=== PATIENT | male | born 1960 | race Caucasian/White ===

== ENCOUNTER → 2016-11-13 | Outpatient (CLI) | payer BC ==
[2016-11-13 16:34] LABS: BASO # 0.1 K/mm3 (0.0-0.2); BASO % 1.2 % (0.0-1.0); EOS # 0.2 K/mm3 (0.0-0.50); EOS % 2.4 % (0.0-3.0); LARGE UNSTAINED CELL # 0.2 K/mm3 (0.0-0.4); LARGE UNSTAINED CELL % 1.6 % (0.0-4.0); LYMPH # 2.8 K/mm3 (1.5-4.5); LYMPH % 25.8 % (24.0-44.0); MEAN CORPUSCULAR HEMOGLOBIN 30.6 pg (27.0-33.0); MEAN CORPUSCULAR HGB CONC 33.1 g/dl (32.0-36.5); MEAN CORPUSCULAR VOLUME 92.4 fl (80.0-96.0); MONO # 0.5 K/mm3 (0.0-0.8); MONO % 4.9 % (0.0-5.0); NEUTROPHILS # 6.5 K/mm3 (1.8-7.7); PLATELET COUNT, AUTOMATED 325 k/mm3 (150-450); RED CELL DISTRIBUTION WIDTH 13.5 % (11.5-14.5); WHITE BLOOD COUNT 10.1 K/mm3 (4.0-10.0)
[2016-11-13 16:51] LABS: ALBUMIN 3.9 GM/DL (3.2-5.2); ALBUMIN/GLOBULIN RATIO 1.08 (1.00-1.93); ALKALINE PHOSPHATASE 78 U/L (45-117); ALT/SGPT 22 U/L (12-78); AMYLASE 53 U/L (25-115); ANION GAP 6 MEQ/L (8-16); AST/SGOT 15 U/L (15-37); BILIRUBIN,DIRECT < 0.1 MG/DL (0.0-0.2); BILIRUBIN,TOTAL 0.3 MG/DL (0.2-1.0); BLOOD UREA NITROGEN 8 MG/DL (7-18); CARBON DIOXIDE LEVEL 30 MEQ/L (21-32); CHLORIDE LEVEL 104 MEQ/L (98-107); CREATININE FOR GFR 0.87 MG/DL (0.70-1.30); GLOMERULAR FILTRATION RATE > 60.0 (>56); GLUCOSE, FASTING 74 MG/DL (70-105); POTASSIUM SERUM 4.5 MEQ/L (3.5-5.1); SODIUM LEVEL 140 MEQ/L (136-145); TOTAL PROTEIN 7.5 GM/DL (6.4-8.2)
--- NOTE | 2016-11-13 17:49 | REP ---
CT abdomen and pelvis with IV contrast and with bowel contrast: There are no comparisons. The visualized lung burk are unremarkable. The hepatic parenchyma, gallbladder, pancreas and spleen are unremarkable. The adrenals, kidneys and abdominal aorta are unremarkable except for calcified atheroma in the aorta. There is no bowel distension. Mesentery is unremarkable. Pelvis: The appendix is unremarkable. The bladder is unremarkable. There is no adenopathy or ascites. The pelvic bowel loops are unremarkable. Impression: Essentially negative CT of the abdomen and pelvis. Signed by Elroy Jordan MD 11/13/2016 05:39 P
[2016-11-16 09:18] LABS: CONTROL LINE HPYORI INT CTR LINE PRESENT
== END ==
LOC: M LAB 15:39
PROVIDERS: ATTEND Physician Assistant
DX: R10.13 Epigastric pain (principal); R10.11 Right upper quadrant pain; R63.4 Abnormal weight loss

== ENCOUNTER → 2016-12-16 | Outpatient (CLI) | payer BC ==
[~2016-12-16] VITALS: Ht 172.7 cm; Wt 69.9 kg
[~2016-12-16] MED LIST: LIDOCAINE 2% INJ 100 MG/5 ML SDV (FOR ANES.) As Ordered ONE; NS 1,000 ML IV SCH; OMEP20CA3 PO; PROPOFOL 200 MG/20 ML VIAL As Ordered ONE; fentaNYL 100 MCG/2 ML INJECTION (J3010) As Ordered ONE
--- NOTE | 2016-12-16 10:26 | ROOR ---
Patient Name: Evaristo Herrera Procedure Date: 12/16/2016 9:47 AM Date of : 1960 Age: 56 Room: [facility] Gender: Male Note Status: Finalized Procedure: Upper GI endoscopy Indications: Epigastric abdominal pain Providers: Quoc Dimas MD Referring MD: Kenneth Villafana MD Requesting Provider: Medicines: Monitored Anesthesia Care Complications: No immediate complications. Procedure: Pre-Anesthesia Assessment: - Prior to the procedure, a History and Physical was performed, and patient medications and allergies were reviewed. The patient is competent. The risks and benefits of the procedure and the sedation options and risks were discussed with the patient. All questions were answered and informed consent was obtained. Patient identification and proposed procedure were verified by the physician, the nurse and the anesthesiologist in the endoscopy suite. Mental Status Examination: alert and oriented. Airway Examination: normal oropharyngeal airway and neck mobility. Respiratory Examination: clear to auscultation. CV Examination: normal. Prophylactic Antibiotics: The patient does not require prophylactic antibiotics. Prior Anticoagulants: The patient has taken no previous anticoagulant or antiplatelet agents. ASA Grade Assessment: II - A patient with mild systemic disease. After reviewing the risks and benefits, the patient was deemed in satisfactory condition to undergo the procedure. The anesthesia plan was to use monitored anesthesia care (MAC). Immediately prior to administration of medications, the patient was re-assessed for adequacy to receive sedatives. The heart rate, respiratory rate, oxygen saturations, blood pressure, adequacy of pulmonary ventilation, and response to care were monitored throughout the procedure. The physical status of the patient was re-assessed after the procedure. The Endoscope was introduced through the mouth, and advanced to the third part of duodenum. The upper GI endoscopy was accomplished without difficulty. The patient tolerated the procedure well. Findings: The examined esophagus was normal. The Z-line was regular and was found 38 cm from the incisors. Diffuse moderate mucosal changes characterized by erosion, flattening, granularity, linear erosions and nodularity were found in the gastric antrum. Biopsies were taken with a cold forceps for Helicobacter pylori testing. Estimated blood loss was minimal. The second portion of the duodenum was normal. Impression: - Normal esophagus. - Z-line regular, 38 cm from the incisors. - Eroded, flattened, granular, linearly eroded and nodular mucosa in the antrum. Biopsied. - Normal second portion of the duodenum. - High likelihood of gastritis. Recommendation: - Discharge patient to home (ambulatory). - Continue present medications. - Await pathology results. - Telephone my office for pathology results in 2 weeks. Quoc Dimas MD Quoc Dimas MD 12/16/2016 10:25:25 AM This report has been signed electronically. Number of Addenda: 0 Note Initiated On: 12/16/2016 9:47 AM Estimated Blood Loss: Estimated blood loss was minimal.
--- NOTE | 2016-12-16 10:29 | ROOR ---
Patient Name: Evaristo Herrera Procedure Date: 12/16/2016 9:49 AM Date of : 1960 Age: 56 Room: [facility] Gender: Male Note Status: Finalized Procedure: Colonoscopy Indications: Screening for colorectal malignant neoplasm Providers: Quoc Dimas MD Referring MD: Kenneth Villafana MD Requesting Provider: Medicines: Monitored Anesthesia Care Complications: No immediate complications. Procedure: Pre-Anesthesia Assessment: - Prior to the procedure, a History and Physical was performed, and patient medications and allergies were reviewed. The patient is competent. The risks and benefits of the procedure and the sedation options and risks were discussed with the patient. All questions were answered and informed consent was obtained. Patient identification and proposed procedure were verified by the physician, the nurse and the anesthesiologist in the endoscopy suite. Mental Status Examination: alert and oriented. Airway Examination: normal oropharyngeal airway and neck mobility. Respiratory Examination: clear to auscultation. CV Examination: normal. Prophylactic Antibiotics: The patient does not require prophylactic antibiotics. Prior Anticoagulants: The patient has taken no previous anticoagulant or antiplatelet agents. ASA Grade Assessment: II - A patient with mild systemic disease. After reviewing the risks and benefits, the patient was deemed in satisfactory condition to undergo the procedure. The anesthesia plan was to use monitored anesthesia care (MAC). Immediately prior to administration of medications, the patient was re-assessed for adequacy to receive sedatives. The heart rate, respiratory rate, oxygen saturations, blood pressure, adequacy of pulmonary ventilation, and response to care were monitored throughout the procedure. The physical status of the patient was re-assessed after the procedure. The Colonoscope was introduced through the anus and advanced to the cecum, identified by appendiceal orifice and ileocecal valve. The colonoscopy was performed without difficulty. The patient tolerated the procedure well. The quality of the bowel preparation was adequate to identify polyps. Findings: The perianal exam findings include non-thrombosed external hemorrhoids. A diminutive polyp was found in the descending colon. The polyp was flat. The polyp was removed with a jumbo cold forceps. Resection and retrieval were complete. Estimated blood loss was minimal. A small polyp was found in the rectum. The polyp was sessile. The polyp was removed with a jumbo cold forceps. Resection and retrieval were complete. Estimated blood loss was minimal. Three sessile polyps were found in the rectum. The polyps were 5 to 8 mm in size. These polyps were removed with a jumbo cold forceps. Resection and retrieval were complete. Estimated blood loss was minimal. Impression: - Non-thrombosed external hemorrhoids found on perianal exam. - One diminutive polyp in the descending colon, removed with a jumbo cold forceps. Resected and retrieved. - One small polyp in the rectum, removed with a jumbo cold forceps. Resected and retrieved. - Three 5 to 8 mm polyps in the rectum, removed with a jumbo cold forceps. Resected and retrieved. Recommendation: - Repeat colonoscopy in 5 years for surveillance. - Telephone my office for pathology results in 2 weeks. Quoc Dimas MD Quoc Dimas MD 12/16/2016 10:29:34 AM This report has been signed electronically. Number of Addenda: 0 Note Initiated On: 12/16/2016 9:49 AM Estimated Blood Loss: Estimated blood loss was minimal.
[2016-12-16 10:50] VITALS: BP 117/68
== END | disposition home or self-care (01) ==
LOC: M OPP 08:23
PROVIDERS: ATTEND Surgery
DX: Z12.11 Encounter for screening for malignant neoplasm of colon (principal); D12.4 Benign neoplasm of descending colon; D12.8 Benign neoplasm of rectum; K31.89 Other diseases of stomach and duodenum; R63.4 Abnormal weight loss; K64.4 Residual hemorrhoidal skin tags; K25.9 Gastric ulcer, unspecified as acute or chronic, without hemorrhage or perforation; R10.13 Epigastric pain; R12 Heartburn; F17.210 Nicotine dependence, cigarettes, uncomplicated; Z79.899 Other long term (current) drug therapy
CPT/HCPCS: 43239; 45380; 88305; 99156; 99157; J3010

== ENCOUNTER 2021-07-30 18:11 | Observation (INO) | payer BC ==
[~2021-07-30] VITALS: Ht 172.7 cm; Wt 78.5 kg
[~2021-07-30 18:11] MED LIST changes: -LIDOCAINE 2% INJ 100 MG/5 ML SDV (FOR ANES.) As Ordered ONE; -NS 1,000 ML IV SCH; +OMEP1CAP73 PO; -OMEP20CA3 PO; -PROPOFOL 200 MG/20 ML VIAL As Ordered ONE; -fentaNYL 100 MCG/2 ML INJECTION (J3010) As Ordered ONE
--- OUTSIDE RECORDS SUMMARY | 2021-07-30 18:27 | CCD ---
Author Author [facility] Organization [facility] Address Unknown Phone Unavailable Support Name Relationship Address Phone DEMETRIO NAVAS Next Of Kin [address] [place] [address] LAURA MACHINE Next Of Kin [address] [place] [address] FERDINAND NAVAS-DEMETRIO Next Of Kin [address] [place] [address] Re-disclosure Warning The records that you are about to access may contain information from federally-assisted alcohol or drug abuse programs. If such information is present, then the following federally mandated warning applies: This information has been disclosed to you from records protected by federal confidentiality rules (42 CFR part 2). The federal rules prohibit you from making any further disclosure of this information unless further disclosure is expressly permitted by the written consent of the person to whom it pertains or as otherwise permitted by 42 CFR part 2. A general authorization for the release of medical or other information is NOT sufficient for this purpose. The Federal rules restrict any use of the information to criminally investigate or prosecute any alcohol or drug abuse patient.The records that you are about to access may contain highly sensitive health information, the redisclosure of which is protected by Article 27-F of the [facility] Public Health law. If you continue you may have access to information: Regarding HIV / AIDS; Provided by facilities licensed or operated by the [facility] Office of Mental Health; or Provided by the [facility] Office for People With Developmental Disabilities. If such information is present, then the following [facility] mandated warning applies: This information has been disclosed to you from confidential records which are protected by state law. State law prohibits you from making any further disclosure of this information without the specific written consent of the person to whom it pertains, or as otherwise permitted by law. Any unauthorized further disclosure in violation of state law may result in a fine or senior care sentence or both. A general authorization for the release of medical or other information is NOT sufficient authorization for further disc losure. Family History Family Member Name Family Member Gender Family Member Status Date o f Status Description Data Source(s) Unknown Male Problem [facility] ([facility]) Unknown Female Problem MEDENT ([facility], ) Unknown Unknown Medications No Information Insurance Providers Payer name Policy type / Coverage type Policy ID Covered republican ID Covered republican's relationship to alves Policy Alves Plan Information [facility]/[id number] SP [id number] Blue Cross Blue Shield CL Commercial [id number] Self V [id number] BLUE CROSS BLUE SHIELD CL BS [id number] 18 [id number] BLUE CROSS BLUE SHIELD -O/P [id number] 18 [id number] Blue Cross Blue Shield CL Commercial [id number] Self V [id number] [employer] BC[employer] Health Maintenance Organization (HMO) [id number] Self [id number] [facility] Commercial [id number] Self Problems, Conditions, and Diagnoses No Information Surgeries/Procedures No Information Results No Information Social History No Information
[2021-07-30 19:55] LABS: BASO # 0.1 10^3/uL (0.0-0.2); BASO % 0.5 % (0.0-1.0); EOS # 0.4 10^3/uL (0.0-0.5); EOS % 4.5 % (0.0-3.0); HEMATOCRIT 45.2 % (42.0-52.0); HEMOGLOBIN 15.1 g/dl (13.5-17.5); LYMPH # 2.7 10^3/uL (1.5-5.0); LYMPH % 27.6 % (24.0-44.0); MEAN CORPUSCULAR HEMOGLOBIN 31.6 pg (27.0-33.0); MEAN CORPUSCULAR HGB CONC 33.4 g/dl (32.0-36.5); MEAN CORPUSCULAR VOLUME 94.6 fl (80.0-96.0); MONO # 0.6 10^3/uL (0.0-0.8); PLATELET COUNT, AUTOMATED 255 10^3/uL (150-450); RED BLOOD COUNT 4.78 10^6/uL (4.30-6.10); WHITE BLOOD COUNT 9.8 10^3/uL (4.0-10.0)
--- NOTE | 2021-07-30 20:00 | REP ---
INDICATION: CHEST PAIN. COMPARISON: None. TECHNIQUE: Single portable AP view of the chest was performed. FINDINGS: There is no acute infiltrate or pulmonary edema. Lungs are clear. The heart is not significantly enlarged. The mediastinal silhouette is unremarkable. The visualized osseous structures are intact. IMPRESSION: No acute pulmonary disease. <Electronically signed by Elroy Medrano > 07/30/211956
--- OUTSIDE RECORDS SUMMARY | 2021-07-30 20:05 | CCD ---
Author Author [facility] Organization [facility] Address Unknown Phone Unavailable Support Name Relationship Address Phone DEMETRIO NAVAS Next Of Kin [address] [place] [address] LAURA MACHINE Next Of Kin [address] [facility] [place] [phone] FERDINAND NAVAS-DEMETRIO Next Of Kin [address] [place] [address] Re-disclosure Warning The records that you are [...] is protected by Article 27-F of the [facility] Public Health law. If you continue you may have access to information: Regarding HIV / AIDS; Provided by facilities licensed or operated by the [facility] Office of Mental Health; or Provided by the [facility] Office for People With Developmental Disabilities. If such information is present, then the following [facility] mandated warning applies: This information has [...] law may result in a fine or assisted sentence or both. A general authorization for the release of medical or other information is NOT sufficient authorization for further disc losure. Family History Family Member Name Family Member Gender Family Member Status Date o f Status Description Data Source(s) Unknown Male Problem [facility]ENT ([facility]) Unknown Female Problem MEDENT ([facility], ) Unknown Unknown Medications No Information Insurance Providers Payer name Policy type / Coverage type Policy ID Covered democrat ID Covered democrat's relationship to alves Policy Alves Plan Information [facility] 302/[id number] SP [id number] Blue Cross Blue Shield CL Commercial [id number] Self V [id number] BLUE CROSS BLUE SHIELD CL BS [id number] 18 [id number] BLUE CROSS BLUE SHIELD -O/P [id number] 18 [id number] Blue Cross Blue Shield CL Commercial [id number] Self V [id number] [employer] Health Maintenance Organization (HMO) [id number] Self [id number] BC[facility] Commercial [id number] Self Problems, Conditions, and Diagnoses No Information Surgeries/Procedures No Information Results No Information Social History No Information
[2021-07-30 20:35] LABS: ALBUMIN 3.6 GM/DL (3.2-5.2); ALT/SGPT 19 U/L (12-78); BILIRUBIN,DIRECT < 0.1 MG/DL (0.0-0.2); BILIRUBIN,TOTAL 0.4 MG/DL (0.2-1.0); CK-MB VALUE MASS < 1.0 NG/ML (<3.6); CPK CREATINE PHOSPHOKINASE 112 U/L (39-308); LIPASE 86 U/L (73-393); MB/CK RELATIVE INDEX 0.89 (< OR =4); NT-PRO BNP 11 PG/ML (<125); TOTAL PROTEIN 6.8 GM/DL (6.4-8.2); TROPONIN I < 0.02 NG/ML (< 0.10)
--- NOTE | 2021-07-30 20:35 | REPVR ---
PROCEDURE INFORMATION: Exam: CT Head Without Contrast Exam date and time: 07/30/2021 8:24 PM Age: 61 years old Clinical indication: Visual disturbance; Additional info: Right upper field visual loss TECHNIQUE: Imaging protocol: Computed tomography of the head without contrast. Radiation optimization: All CT scans at this facility use at least one of these dose optimization techniques: automated exposure control; mA and/or kV adjustment per patient size (includes targeted exams where dose is matched to clinical indication); or iterative reconstruction. COMPARISON: No relevant prior studies available. FINDINGS: Brain: There is minimal patchy low attenuation of deep white matter. The sulci are within normal limits. Cerebral ventricles: There is slight prominence of the central ventricular system. Paranasal sinuses: Visualized sinuses are unremarkable. No fluid levels. Mastoid air cells: Visualized mastoid air cells are well aerated. Bones/joints: Unremarkable. No acute fracture. Soft tissues: Unremarkable. IMPRESSION: 1. Minimal chronic ischemic white matter change and atrophy. 2. Otherwise negative noncontrast head CT. Electronically signed by: Rah Franklin On 07/30/2021 20:35:15 PM
[2021-07-30] MEDS ORDERED: ATORVASTATIN 20 MG TAB PO ONE (21:20)
[2021-07-30] MEDS ORDERED: ASPIRIN 81 MG CHEW TABLET PO ONE (21:20)
[2021-07-30] MEDS ORDERED: ACETAMINOPHEN TAB 650MG DOSE (2X325MG) PO PRN (21:40)
--- NOTE | 2021-07-30 21:44 | HPEPDOC ---
[facility] Medical History & Physical Date of Admission Jul 30, 2021 Date of Service: Jul 30, 2021 Attending Physician: LINK BIRMINGHAM MD History and Physical CHIEF COMPLAINT: [61 y/o male c/o partial right eye vision loss x5 days] HISTORY OF PRESENT ILLNESS: [This is a 61 y/o male with no significant pmh who tells me he has not had routine follow up in several years who presents to our ED on 07/30 with a cc of partial right sided vision loss x5 days. Patient states that he first noticed the change to his vision last wednesday 07/25 after a nap after dinner. Patient states that he assumed at that time he was just tired and went to bed. Patient states that the next day his lateral and superior vision fi elds remained blurred. Patient states that he went about his life as normal despite this. Patients states that he was eventually convinced to go to the eye doctor today by his daughter. Patient states that his eye doctor told him he did not find anything out of the ordinary and recommended patient come to us for evaluation. As of my exam of patient, his only complaint is of persistent vision loss of lateral and superior vision burk of right eye. Patient, at the time of my exam, denies fevers, chills, recent illness, eye pain, painful chewing, headache, weakness, syncope, paresthesias, chest pain, palpitations, sob. ] PAST MEDICAL HISTORY: 1. [See HPI PAST SURGICAL HISTORY: 1. [Reviewed - none SOCIAL HISTORY: Tobacco use:[Current ppd smoker, approx 45 pack year hx] ETOH: [Denies] Illicit drug use: [Occasional marijuana] FAMILY HISTORY: Father: [Heart dz] Mother: [Heart dz] Siblings: [DM, heart dz] ALLERGIES: Please see below. REVIEW OF SYSTEMS: CONSTITUTIONAL: [Denies fevers, chills]. HEENT: [Denies uri type sx]. CARDIOVASCULAR: [Denies chest pain, palpitations]. RESPIRATORY: [Denies sob, cough]. GASTROINTESTINAL: [Denies abd pain, n/v/d/c]. GENITOURINARY: [Denies dysuria]. SKIN: [Denies rash]. MUSCULOSKELETAL: [Denies acute joint/back pain]. NEUROLOGICAL: [Admits to vision loss. Denies syncope, paresthesias, weakness]. ENDOCRINE: [Denies hx of DM]. HEMATOLOGIC/LYMPHATIC: [Denies hx of vte]. HOME MEDICATIONS: Please see below. PHYSICAL EXAMINATION: VITAL SIGNS: Please see below GENERAL APPEARANCE: [Pleasant 61 y/o male who is seated in bed. Patient is alert and oriented to all questioning. He does not appear to be in any acute distress]. HEENT: [No mass or lesion. No facial droop. EOMI. No scleral icterus or injection. No conjunctival erythema. Nares patent. oral mucosa moist ]. CARDIOVASCULAR: [Regular rate, rhythm. No murmurs, rubs, gallops]. LUNGS: [Good air flow b/l No wheezing, rales, rhonchi]. ABDOMEN: [Soft, nontender]. MUSCULOSKELETAL: [No joint deformity noted]. EXTREMITIES: [No pedal edema. No overlying skin changes. Pulses intact]. NEUROLOGICAL: [Speech clear. A+Ox3. No focal deficits. Patient moves all fours freely.]. PSYCHIATRIC: [Mood and affect appropriate]. LABORATORY DATA: See below. IMAGING: [CXR: FINDINGS: There is no acute infiltrate or pulmonary edema. Lungs are clear. The heart is not significantly enlarged. The mediastinal silhouette is unremarkable. The visualized osseous structures are intact. IMPRESSION: No acute pulmonary disease. CT Head: FINDINGS: Brain: There is minimal patchy low attenuation of deep white matter. The sulci are within normal limits. Cerebral ventricles: There is slight prominence of the central ventricular system. Paranasal sinuses: Visualized sinuses are unremarkable. No fluid levels. Mastoid air cells: Visualized mastoid air cells are well aerated. Bones/joints: Unremarkable. No acute fracture. Soft tissues: Unremarkable. IMPRESSION: 1. Minimal chronic ischemic white matter change and atrophy. 2. Otherwise negative noncontrast head CT. ] MICROBIOLOGY: Please see below. ASSESSMENT: [This is a 61 y/o male with no significant pmh who tells me he has not had routine follow up in several years who presents to our ED on 07/30 with a cc of partial right sided vision loss x5 days.]. . PLAN: 1. [Right sided hemianopsia - Negative eye exam performed today means most likely cause is small cva - Symptom onset of 5 days ago puts patient out of tpa window - CT head performed in ED is negative - ED provider consulted neurology who recommended complete stroke w/u - MRI brain, MRA brain and neck ordered - ECHO ordered for the am - will check a1c, lipid panel to assess risk factors - ASA and first dose of statin given in ed, will continue these daily - will monitor bp while inpatient to assess need for htn medication - Will keep pt on tele for now - Admit to med surg under obs for stroke w/u 2. Nicotine abuse - smoking cessation counseling - nicotine patch DVT prophylaxis - teds/scds]. Vital Signs Vital Signs Date Time Temp Pulse Resp B/P (MAP) Pulse Ox O2 Delivery O2 Flow Rate FiO2 07/30/21 21:19 75 98 07/30/21 21:00 134/60 (84) 07/30/21 18:11 98.1 17 Room Air Laboratory Data Labs 24H Laboratory Tests 2 07/30/21 19:12: Immature Granulocyte % (Auto) 0.4, Neutrophils (%) (Auto) 61.0, Lymphocytes (%) (Auto) 27.6, Monocytes (%) (Auto) 6.0, Eosinophils (%) (Auto) 4.5H, Basophils (% ) (Auto) 0.5, Neutrophils # (Auto) 6.0, Lymphocytes # (Auto) 2.7, Monocytes # (Auto) 0.6, Eosinophils # (Auto) 0.4, Basophils # (Auto) 0.1, Nucleated Red Blood Cells % (auto) 0.0, Total Bilirubin 0.4, Direct Bilirubin < 0.1, Aspartate Amino Transf (AST/SGOT) 11, Alanine Aminotransferase (ALT/SGPT) 19, Alkaline Phosphatase 77, Total Creatine Kinase 112, Creatine Kinase MB < 1.0, Creatine Kinase MB Relative Index 0.89, Troponin I < 0.02, HB-Atr-F-Type Natriuretic Peptide 11, Total Protein 6.8, Albumin 3.6, Albumin/Globulin Ratio 1.1, Lipase 86, Thyroid Stimulating Hormone (TSH) 1.220 07/30/21 19:53: POC Glucose (Misc Panel) 96, POC Sodium (Misc Panel) 140, POC Potassium (Misc Panel) 4.0, POC Chloride (Misc Panel) 105, POC Total CO2 (Misc Panel) 25.0, POC Blood Urea Nitrogen (Misc Panel 9, POC Ionized Calcium (Misc Panel) 4.6, POC Creatinine (Misc Panel) 0.9, POC Hematocrit (Misc Panel) 45.0 CBC/BMP Laboratory Tests 07/30/21 19:12 Home Medications No Active Prescriptions or Reported Meds Allergies Coded Allergies: No Known Allergies (Unverified , 12/09/16) A-FIB/CHADSVASC A-FIB History Current/History of A-Fib/PAF?: No Current PO Anticoag Therapy: No SALINA LE Jul 30, 2021 21:44
[2021-07-30 22:01] LABS: CHOLESTEROL LEVEL 213 MG/DL (<200); HDL CHOLESTEROL 31 MG/DL (>40); LDL CHOLESTEROL 146 MG/DL (<100); NON-HDL-C 182 MG/DL; TRIGLYCERIDES LEVEL 181 MG/DL (<150)
--- OUTSIDE RECORDS SUMMARY | 2021-07-30 22:04 | CCD ---
Author Author [facility] Organization [facility] Address Unknown Phone Unavailable Support Name Relationship Address Phone DEMETRIO NAVAS Next Of Kin [address] [place] [address] LAURA MACHINE Next Of Kin [address] [facility] [place] [id number] FERDINAND NAVAS-DEMETRIO Next Of Kin [address] [place] [address] Re-disclosure Warning The records that you are [...] is protected by Article 27-F of the [facility] Public Health law. If you continue you may have access to information: Regarding HIV / AIDS; Provided by facilities licensed or operated by the [facility] Office of Mental Health; or Provided by the [facility] Office for People With Developmental Disabilities. If such information is present, then the following [facility] mandated warning applies: This information has been [...] law may result in a fine or custodial sentence or both. A general authorization for the release of medical or other information is NOT sufficient authorization for further disc losure. Family History Family Member Name Family Member Gender Family Member Status Date o f Status Description Data Source(s) Unknown Male Problem MEDENT ([facility]) Unknown Female Problem MEDENT ([facility], ) Unknown Unknown Medications No Information Insurance Providers Payer name Policy type / Coverage type Policy ID Covered constitution party ID Covered constitution party's relationship to alves Policy Alves Plan Information [facility]/[id number] SP [id number] Blue Cross Blue Shield CL Commercial [id number] Self V [id number] BLUE CROSS BLUE SHIELD CL BS [id number] 18 [id number] BLUE CROSS BLUE SHIELD -O/P [id number] 18 [id number] Blue Cross Blue Shield CL Commercial [id number] Self V [id number] [employer] Health Maintenance Organization (HMO) [id number] Self [id number] [facility] Commercial [id number] Self Problems, Conditions, and Diagnoses No Information Surgeries/Procedures No Information Results No Information Social History No Information
[2021-07-30 22:11] LABS: HEMOGLOBIN A1c 5.5 %
--- NOTE | 2021-07-31 00:20 | REPVR ---
PROCEDURE INFORMATION: Exam: MR Head Without Contrast Exam date and time: 07/30/2021 10:51 PM Age: 61 years old Clinical indication: Other: CVA workup TECHNIQUE: Imaging protocol: MR of the head without contrast. COMPARISON: CT Head without contrast 07/30/2021 8:22 PM FINDINGS: Brain: No acute infarct or intracranial hemorrhage. Scattered nonspecific foci of T2/FLAIR signal prolongation involving periventricular and subcortical white matter bilaterally. Cerebral ventricles: Normal. No ventriculomegaly. Bones/joints: Unremarkable. Paranasal sinuses: Paranasal sinus disease. Mastoid air cells: Normal as visualized. No mastoid effusion. Orbital cavity: Unremarkable. Soft tissues: Unremarkable. IMPRESSION: No acute infarct or intracranial hemorrhage. Scattered nonspecific foci of T2/FLAIR signal prolongation involving periventricular and subcortical white matter bilaterally. Electronically signed by: Alvarez Boateng On 07/31/2021 00:19:57 AM
--- NOTE | 2021-07-31 00:21 | REPVR ---
PROCEDURE INFORMATION: Exam: MRA Head Without Contrast; Arteriography Exam date and time: 07/30/2021 10:51 PM Age: 61 years old Clinical indication: Other: CVA; Additional info: CVA workup TECHNIQUE: Imaging protocol: Magnetic resonance angiography head without contrast. Exam focused on the arteries. COMPARISON: MRI-Brain without Contrast 07/30/2021 10:24 PM FINDINGS: ANTERIOR CIRCULATION: Right internal carotid artery: Intracranial segment is patent with no significant stenosis. No aneurysm. Right middle cerebral artery: No occlusion or significant stenosis. No aneurysm. Right anterior cerebral artery: No occlusion or significant stenosis. No aneurysm. Left internal carotid artery: Intracranial segment is patent with no significant stenosis. No aneurysm. Left middle cerebral artery: No occlusion or significant stenosis. No aneurysm. Left anterior cerebral artery: No occlusion or significant stenosis. No aneurysm. POSTERIOR CIRCULATION: Right vertebral artery: No occlusion or significant stenosis. No aneurysm. Left vertebral artery: No occlusion or significant stenosis. No aneurysm. Basilar artery: No occlusion or significant stenosis. No aneurysm. Right posterior cerebral artery: No occlusion or significant stenosis. No aneurysm. Left posterior cerebral artery: No occlusion or significant stenosis. No aneurysm. IMPRESSION: No stenosis or occlusion. Electronically signed by: Alvarez Boateng On 07/31/2021 00:21:30 AM
--- NOTE | 2021-07-31 00:23 | REPVR ---
PROCEDURE INFORMATION: Exam: MRA Neck Without Contrast Exam date and time: 07/30/2021 10:51 PM Age: 61 years old Clinical indication: Other: CVA; Additional info: CVA workup TECHNIQUE: Imaging protocol: Magnetic resonance angiography of the neck without contrast. COMPARISON: MRI-Brain without Contrast 07/30/2021 10:24 PM FINDINGS: Right common carotid artery: No stenosis. No dissection or occlusion. Right internal carotid artery: No stenosis of the extracranial segment. No dissection or occlusion. Right external carotid artery: No stenosis. No dissection or occlusion of the origin. Right vertebral artery: No stenosis. No dissection or occlusion. Left common carotid artery: No stenosis. No dissection or occlusion. Left internal carotid artery: No stenosis of the extracranial segment. No dissection or occlusion. Left external carotid artery: No stenosis. No dissection or occlusion of the origin. Left vertebral artery: No stenosis. No dissection or occlusion. IMPRESSION: No stenosis or occlusion. REFERENCES: NASCET CRITERIA. The degree of internal carotid artery stenosis is based on NASCET criteria. Normal is no stenosis. Mild is less than 50% stenosis. Moderate is 50-69% stenosis. Severe is 70% to 99% stenosis. Total occlusion is no detectable patent lumen. Electronically signed by: Alvarez Boateng On 07/31/2021 00:23:04 AM
[2021-07-31 01:36] LABS: RSV AMPLIFICATION NEGATIVE (NEGATIVE)
[2021-07-31] MEDS ORDERED: HOME MED LIST COMPLETE! XX SCH (02:20)
--- NOTE | 2021-07-31 07:42 | ECGEPIP ---
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
[2021-07-31 08:22] LABS: HEMATOCRIT 48.3 % (42.0-52.0); HEMOGLOBIN 16.3 g/dl (13.5-17.5); MEAN CORPUSCULAR HEMOGLOBIN 31.5 pg (27.0-33.0); MEAN CORPUSCULAR HGB CONC 33.7 g/dl (32.0-36.5); MEAN CORPUSCULAR VOLUME 93.2 fl (80.0-96.0); PLATELET COUNT, AUTOMATED 313 10^3/uL (150-450); RED BLOOD COUNT 5.18 10^6/uL (4.30-6.10); WHITE BLOOD COUNT 11.4 10^3/uL (4.0-10.0)
[2021-07-31 08:43] LABS: BLOOD UREA NITROGEN 13 MG/DL (7-18); CALCIUM LEVEL 9.4 MG/DL (8.5-10.1); CARBON DIOXIDE LEVEL 27 MEQ/L (21-32); CHLORIDE LEVEL 107 MEQ/L (98-107); GLOMERULAR FILTRATION RATE > 60.0 (>56); GLUCOSE, FASTING 118 MG/DL (70-100); MAGNESIUM LEVEL 2.2 MG/DL (1.8-2.4); POTASSIUM SERUM 4.1 MEQ/L (3.5-5.1); SODIUM LEVEL 140 MEQ/L (136-145)
[2021-07-31 10:13] LABS: HEMOGLOBIN A1c 5.4 %
[2021-07-31] MEDS: ATORVASTATIN 20 MG TAB PO SCH (10:38)
[2021-07-31] MEDS: ASPIRIN 81MG ENTERIC TABLET PO SCH (10:38)
--- NOTE | 2021-07-31 12:50 | IPNPDOC ---
Subjective Date Seen The patient was seen on 07/31/21. Subjective Chief Complaint/HPI Patient was seen and examined at bedside this morning. He continues to complain of blurry vision in the upper quadrants of his right eye as well as associated nausea and vomiting. He had an episode of bilious vomit during examination. He denies focal weakness, chest pain, headaches, palpitations, abdominal pain, problems with urination and bowel movements. Objective Physical Examination Other physical findings General: Lying in bed, no acute distress Head/Neck/Throat: Trachea midline, mucous membranes moist Eyes: Sclera anicteric, PERRLA Thorax: Normal respiratory effort on room air, lungs clear to auscultation bilaterally, no wheezes/rales/rhonchi Cardiovascular: Normal rate, regular rhythm, normal S1, S2; no S3, S4, rubs/gallops/murmurs Abdomen: Bowel sounds present, soft/nontender/nondistended Genitourinary: No CVA tenderness, no Palafox in place Musculoskeletal: Moving all extremities, no edema Skin: Warm, dry Neurologic: AAOx3, speech fluent and goal-directed, no focal deficits, grossly intact. Reports blurred vision in the right eye in the upper quadrants. Cranial nerves II to XII otherwise are intact. Strength in the upper and lower extremities is 5/5. Sensation to gross touch is intact. Cerebellar examination including nbatzb-[id number]-rtor nqtt-xi-[id number] intact. Patellar and brachial reflexes 2+. Assessment /Plan Assessment #Right-sided hemianopsia -All imaging thus far is negative for stroke. Reached out to [facility] eye physicians and surgeons but there is no seaming inspector available until 08/05. -Patient is going to be evaluated by neurology to see if there is any further recommendations. #Nicotine abuse -Cessation is encouraged, nicotine patch #DVT prophylaxis -Lovenox. Plan/VTE VTE Prophylaxis Ordered?: Yes VS, I&O, 24H, Fishbone Vital Signs/I&O Vital Signs Date Time Temp Pulse Resp B/P (MAP) Pulse Ox O2 Delivery O2 Flow Rate FiO2 07/31/21 11:30 81 139/75 (96) 96 07/31/21 10:19 16 07/31/21 06:30 Room Air 07/31/21 03:00 98.2 Laboratory Data 24H LABS Laboratory Tests 2 07/30/21 19:12: Immature Granulocyte % (Auto) 0.4, Neutrophils (%) (Auto) 61.0, Lymphocytes (%) (Auto) 27.6, Monocytes (%) (Auto) 6.0, Eosinophils (%) (Auto) 4.5H, Basophils (%) (Auto) 0.5, Neutrophils # (Auto) 6.0, Lymphocytes # (Auto) 2.7, Monocytes # (Auto) 0.6, Eosinophils # (Auto) 0.4, Basophils # (Auto) 0.1, Nucleated Red Blood Cells % (auto) 0.0, Estimated Mean Plasma Glucose 111H, Hemoglobin A1c 5.5, Total Bilirubin 0.4, Direct Bilirubin < 0.1, Aspartate Amino Transf (AST/SGOT) 11, Alanine Aminotransferase (ALT/SGPT) 19, Alkaline Phosphatase 77, Total Creatine Kinase 112, Creatine Kinase MB < 1.0, Creatine Kinase MB Relative Index 0.89, Troponin I < 0.02, MX-Hut-W-Type Natriuretic Peptide 11, Total Protein 6.8, Albumin 3.6, Albumin/Globulin Ratio 1.1, Triglycerides Level 181H, Total Cholesterol 213H, LDL Cholesterol 146H, Non-HDL Cholesterol (LDL + VLDL) 182, Total HDL Cholesterol 31L, Cholesterol/HDL Ratio 6.870H, Lipase 86, Thyroid Stimulating Hormone (TSH) 1.220 07/30/21 19:53: POC Glucose (Misc Panel) 96, POC Sodium (Misc Panel) 140, POC Potassium (Misc Panel) 4.0, POC Chloride (Misc Panel) 105, POC Total CO2 (Misc Panel) 25.0, POC Blood Urea Nitrogen (Misc Panel 9, POC Ionized Calcium (Misc Panel) 4.6, POC Creatinine (Misc Panel) 0.9, POC Hematocrit (Misc Panel) 45.0 07/31/21 00:08: Coronavirus (COVID-19)(PCR) NEGATIVE, Influenza Type A (RT-PCR) NEGATIVE, Influenza Type B (RT-PCR) NEGATIVE, Respiratory Syncytial Virus (PCR) NEGATIVE 07/31/21 07:47: Nucleated Red Blood Cells % (auto) 0.0, Estimated Mean Plasma Glucose 108, Hemoglobin A1c 5.4, Anion Gap 6L, Glomerular Filtration Rate > 60.0, Calcium Level 9.4, Magnesium Level 2.2 CBC/BMP Laboratory Tests 07/30/21 19:12 07/31/21 07:47 DYLAN ROSS M.D. Jul 31, 2021 12:50
[2021-07-31 13:10] VITALS: BP 128/79
[2021-07-31] MEDS: PANTOPRAZOLE 40MG TAB (PROTONIX) PO SCH (13:36)
[2021-07-31] MEDS: NICOTINE 14 MG/24 HR TRANSDERMAL TD PRN (13:36)
[2021-07-31] MEDS: ONDANSETRON 4MG/2ML VIAL IV SCH ×2 (13:36→20:14)
[2021-07-31] MEDS: ENOXAPARIN 40MG/0.4ML SYRINGE (J1650 PER 10MG) SC SCH (13:37)
[2021-07-31 22:00] VITALS: BP 130/80
[2021-08-01] MEDS: ONDANSETRON 4MG/2ML VIAL IV SCH ×2 (01:18→09:58)
[2021-08-01 05:56] VITALS: BP 117/73
[2021-08-01 06:06] LABS: HEMATOCRIT 47.3 % (42.0-52.0); MEAN CORPUSCULAR HEMOGLOBIN 31.6 pg (27.0-33.0); MEAN CORPUSCULAR HGB CONC 33.8 g/dl (32.0-36.5); MEAN CORPUSCULAR VOLUME 93.5 fl (80.0-96.0); PLATELET COUNT, AUTOMATED 283 10^3/uL (150-450); RED BLOOD COUNT 5.06 10^6/uL (4.30-6.10); WHITE BLOOD COUNT 12.6 10^3/uL (4.0-10.0)
[2021-08-01 06:26] LABS: BLOOD UREA NITROGEN 16 MG/DL (7-18); CALCIUM LEVEL 9.2 MG/DL (8.5-10.1); CARBON DIOXIDE LEVEL 29 MEQ/L (21-32); CHLORIDE LEVEL 105 MEQ/L (98-107); CREATININE FOR GFR 0.98 MG/DL (0.70-1.30); GLOMERULAR FILTRATION RATE > 60.0 (>56); GLUCOSE, FASTING 102 MG/DL (70-100); PHOSPHORUS LEVEL 3.2 MG/DL (2.5-4.9); POTASSIUM SERUM 4.4 MEQ/L (3.5-5.1); SODIUM LEVEL 138 MEQ/L (136-145)
--- NOTE | 2021-08-01 09:21 | CR ---
CONSULTATION DATE OF CONSULTATION: 07/31/2021 REASON FOR CONSULTATION: Lost vision in right eye. HISTORY OF PRESENT ILLNESS: Evaristo Herrera is a 61-year-old man with history of smoking and has not seen a primary doctor for several years. He developed partial loss of vision in the right eye affecting upper half of vision for last 5 days without any pain in his eyes or headache. He noted that his vision was slightly altered on last Wednesday after a nap after dinner. He assumed that it was just fatigue and tiredness and went to bed. He woke up Wednesday morning and had a problem with vision in upper half of right eye vision. There was no pain or headache. He denies dysphagia, dysarthria, diplopia, urinary incontinence, falls, loss of consciousness. He denies any headaches, neck pain, back pain, numbness or weakness of arms and legs, difficulty walking. PAST MEDICAL HISTORY: None. FAMILY HISTORY: Parents with history of heart disease and siblings with diabetes. SOCIAL HISTORY: He smokes one pack per day. He denies any alcohol or illicit drugs. REVIEW OF SYSTEMS: All systems were reviewed and were found to be noncontributory. HOME MEDICATIONS: None. ALLERGIES: None. DIAGNOSTIC STUDIES: MRI scan of brain, MRA brain and neck were unremarkable except minimal small vessel ischemic disease of brain but no acute disease. CBC and metabolic profile were unremarkable. His total cholesterol and LDL are elevated on fasting lipid profile. PHYSICAL EXAMINATION: Pulse 75, respiratory rate 17, blood pressure 134/60, 98% saturation on room air. Heart: Regular rate and rhythm. Lungs: Clear to auscultation. Abdomen: Soft, nontender, nondistended. No pedal edema. No musculoskeletal abnormalities. No rash. No signs of meningeal irritation. Patient is awake, alert, oriented to place, person, and time. Normal speech, comprehension, and repetition. Extraocular muscles are intact. No facial weakness. Tongue and uvula are midline. 5/5 strength in all four extremities. Deep tendon reflexes are 2+ throughout. Normal sensation. No dysmetria or ataxia. Gait is normal. He is able to do tandem walking. ASSESSMENT: 1. Loss of vision in upper half of right eye. 2. There is concern for branch retinal artery occlusion and ischemic optic neuropathy. 3. Tobacco abuse. PLAN: 1. Aspirin 81 mg by mouth daily and Lipitor 40 mg by mouth daily. 2. Check erythrocyte sedimentation rate (ESR) and C-reactive protein (CRP). My index of suspicion is low for giant cell arteritis due to absence of any eye or head pain. 3. Follow with our office in 2 weeks. He should see ophthalmology. He saw Dr. Doan at [facility] who had referred him to [facility] for urgent imaging.
[2021-08-01] MEDS: PANTOPRAZOLE 40MG TAB (PROTONIX) PO SCH (09:58)
[2021-08-01] MEDS: ASPIRIN 81MG ENTERIC TABLET PO SCH (09:58)
[2021-08-01] MEDS: ATORVASTATIN 20 MG TAB PO SCH (09:58)
[2021-08-01] MEDS: ENOXAPARIN 40MG/0.4ML SYRINGE (J1650 PER 10MG) SC SCH (09:59)
[2021-08-01] MEDS: NICOTINE 14 MG/24 HR TRANSDERMAL TD PRN (10:50)
[2021-08-01] MEDS ORDERED: ATOR40TA75 PO (11:12)
[2021-08-01] MEDS ORDERED: ASPI-551 PO (11:12)
[2021-08-01] MEDS ORDERED: PANT40TA29 PO (11:12)
[2021-08-01] MEDS ORDERED: PROAAER10 INH (11:16)
--- NOTE | 2021-08-01 16:20 | DS.PDOC ---
Discharge Summary General Date of Admission Jul 30, 2021 at 18:12 Date of Discharge 08/01/21 Discharge Summary DISCHARGE DIAGNOSES: 1. Ischemic optic neuropathy COMPLICATIONS/CHIEF COMPLAINT: Cva (Cerebral Vascular Accident). HOSPITAL COURSE: Mr. Herrera, is a 61-year-old male with no significant past medical history who presented to [facility] on 07/30/2021 with a chief complaint of bl urry vision of his right eye. He described having blurred vision top quadrants of his right eye 5 days prior to admission. His imaging did not reveal gross stroke. However, he was evaluated by neurology team and a ischemic optic neuropathy, or a branch of the retinal artery occlusion was suspected. He was recommended to go on aspirin as well as atorvastatin. He was highly encouraged to stop smoking. An ESR as well as CRP was done to rule out child-size arteriolitis which were essentially negative. There was no ophthalmology coverage during his hospitalization until next Wednesday. 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 Therefore he was asked to follow-up with ophthalmology as soon as possible. He is to follow-up with neurology within 7 to 10 days. DISCHARGE MEDICATIONS: Please see below. ALLERGIES: Please see below. PHYSICAL EXAMINATION ON DISCHARGE: VITAL SIGNS: Please see below. General: Lying in bed, no acute distress Head/Neck/Throat: Trachea midline, mucous membranes moist Eyes: Sclera anicteric, PERRLA Thorax: Normal respiratory effort on room air, lungs clear to auscultation bilaterally, no wheezes/rales/rhonchi Cardiovascular: Normal rate, regular rhythm, normal S1, S2; no S3, S4, rubs/gallops/murmurs Abdomen: Bowel sounds present, soft/nontender/nondistended Genitourinary: No CVA tenderness, no Palafox in place Musculoskeletal: Moving all extremities, no edema Skin: Warm, dry Neurologic: AAOx3, speech fluent and goal-directed, no focal deficits, grossly intact. Reports improvement in his blurred vision of the right eye in the upper quadrants. Cranial nerves II to XII otherwise are intact. Strength in the upper and lower extremities is 5/5. Sensation to gross touch is intact. Cerebellar examination including bqnmlb-ym-vntw xikx-jo-tkyb intact. Patellar and brachial reflexes 2+. LABORATORY DATA: Please see below. IMAGING: PORTABLE CHEST X-RAY FINDINGS: There is no acute infiltrate or pulmonary edema. Lungs are clear. The heart is not significantly enlarged. The mediastinal silhouette is unremarkable. The visualized osseous structures are intact. IMPRESSION: No acute pulmonary disease. CT Head without contrast FINDINGS: Brain: There is minimal patchy low attenuation of deep white matter. The sulci are within normal limits. Cerebral ventricles: There is slight prominence of the central ventricular system. Paranasal sinuses: Visualized sinuses are unremarkable. No fluid levels. Mastoid air cells: Visualized mastoid air cells are well aerated. Bones/joints: Unremarkable. No acute fracture. Soft tissues: Unremarkable. IMPRESSION: 1. Minimal chronic ischemic white matter change and atrophy. 2. Otherwise negative noncontrast head CT. MRI-Brain without Contrast FINDINGS: Brain: No acute infarct or intracranial hemorrhage. Scattered nonspecific foci of T2/FLAIR signal prolongation involving periventricular and subcortical white matter bilaterally. Cerebral ventricles: Normal. No ventriculomegaly. Bones/joints: Unremarkable. Paranasal sinuses: Paranasal sinus disease. Mastoid air cells: Normal as visualized. No mastoid effusion. Orbital cavity: Unremarkable. Soft tissues: Unremarkable. IMPRESSION: No acute infarct or intracranial hemorrhage. Scattered nonspecific foci of T2/FLAIR signal prolongation involving periventricular and subcortical white matter bilaterally. MRA BRAIN W/O CONTRAST ANTERIOR CIRCULATION: Right internal carotid artery: Intracranial segment is patent with no significant stenosis. No aneurysm. Right middle cerebral artery: No occlusion or significant stenosis. No aneurysm. Right anterior cerebral artery: No occlusion or significant stenosis. No aneurysm. Left internal carotid artery: Intracranial segment is patent with no significant stenosis. No aneurysm. Left middle cerebral artery: No occlusion or significant stenosis. No aneurysm. Left anterior cerebral artery: No occlusion or significant stenosis. No aneurysm. POSTERIOR CIRCULATION: Right vertebral artery: No occlusion or significant stenosis. No aneurysm. Left vertebral artery: No occlusion or significant stenosis. No aneurysm. Basilar artery: No occlusion or significant stenosis. No aneurysm. Right posterior cerebral artery: No occlusion or significant stenosis. No aneurysm. Left posterior cerebral artery: No occlusion or significant stenosis. No aneurysm. IMPRESSION: No stenosis or occlusion MRA CAROTID WITHOUT CONTRAST FINDINGS: Right common carotid artery: No stenosis. No dissection or occlusion. Right internal carotid artery: No stenosis of the extracranial segment. No dissection or occlusion. Right external carotid artery: No stenosis. No dissection or occlusion of the origin. Right vertebral artery: No stenosis. No dissection or occlusion. Left common carotid artery: No stenosis. No dissection or occlusion. Left internal carotid artery: No stenosis of the extracranial segment. No dissection or occlusion. Left external carotid artery: No stenosis. No dissection or occlusion of the origin. Left vertebral artery: No stenosis. No dissection or occlusion. IMPRESSION: No stenosis or occlusion. PROGNOSIS: Good ACTIVITY: As tolerated DIET: Regular DISPOSITION: 01 Home, Self-Care. DISCHARGE INSTRUCTIONS: 1. 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 Follow-up with neurology within 5 to 7 days 3. Stop smoking DISCHARGE CONDITION: Stable TIME SPENT ON DISCHARGE: 30 minutes. Vital Signs/I&Os Vital Signs Date Time Temp Pulse Resp B/P (MAP) Pulse Ox O2 Delivery O2 Flow Rate FiO2 08/01/21 05:56 98.5 81 15 117/73 (88) 92 Room Air I&O- Last 24 Hours up to 6 AM 08/01/21 06:00 Intake Total 100 ml Output Total 100 ml Balance 0 ml Laboratory Data Labs 24H Laboratory Tests 2 07/31/21 17:45: Erythrocyte Sedimentation Rate 21H, C-Reactive Protein, Quantitative 0.38H 08/01/21 05:47: Nucleated Red Blood Cells % (auto) 0.0, Anion Gap 4L, Glomerular Filtration Rate > 60.0, Calcium Level 9.2, Phosphorus Level 3.2, Magnesium Level 2.0 CBC/BMP Laboratory Tests 08/01/21 05:47 Discharge Medications Scheduled Aspirin (Aspirin EC) 81 Mg Tablet.dr, 81 MG PO DAILY Atorvastatin Calcium (Atorvastatin Calcium) 40 Mg Tablet, 40 MG PO DAILY Pantoprazole Sodium (Pantoprazole Sodium) 40 Mg Tablet.dr, 40 MG PO DAILY Scheduled PRN Albuterol Sulfate (Proair Hfa) 8.5 Gm Hfa.aer.ad, 2 PUFF INH Q4-6HP PRN for wheezing Allergies Coded Allergies: No Known Allergies (Unverified , 12/09/16) DYLAN ROSS M.D. Aug 01, 2021 16:20
--- NOTE | 2021-08-03 12:18 | ECHO ---
ECHOCARDIOGRAM DATE OF PROCEDURE: 07/31/2021 Age: 61 Gender: Male Height: 170 cm Weight: 79 kg REFERRING PROVIDER: Faey Belle REASON FOR THE TESTING: Cerebrovascular accident (CVA). MEASUREMENTS: 2D Measurements: IVS 0.9 cm LV 4.6 cm LVPW 0.9 cm LA 3.3 cm Aorta 3.3 cm Doppler Measurements: Peak velocity across the aortic valve 1.2 m/sec Peak velocity across the LVOT 1.0 m/sec Mitral E 0.5 Mitral A 0.6 with a ratio of 0.8 2D COMMENTS: 1. Normal left ventricular size, wall thickness and normal global left ventricular systolic function. The estimated left ventricular systolic ejection fraction is 60-65%. 2. Normal left atrium. Normal right atrium and right ventricle. 3. The atrial septum appears to be normal without evidence of defect or shunt. 4. Normal aortic root. 5. No pericardial effusion seen. 6. Minimally calcified aortic valve with normal leaflet excursion. Mildly calcified mitral annulus with normal anterior mitral valve leaflet motion. Normal tricuspid valve. The pulmonic valve and proximal pulmonary artery branches were not well visualized. 7. The inferior vena cava was not visualized. 8. Bubble study done with agitated normal saline was negative for passage of bubbles from the right heart chambers to the left heart chambers. DOPPLER: It detects trace mitral regurgitation. Abnormal relaxation pattern was noted across the mitral valve leaflets as well as the mitral valve annulus consistent with features of grade 1 left ventricular diastolic dysfunction. IMPRESSION: 1. Normal global left ventricular systolic function. There are some features of grade 1 left ventricular diastolic dysfunction manifested by abnormal relaxation. 2. Aortic valve sclerosis without stenosis or aortic regurgitation. 3. Isolated mitral annulus calcification with trace mitral regurgitation. 4. Negative bubble study for intracardiac shunt.
== END 2021-08-01 13:23 | disposition home or self-care (01) ==
LOC: M ED 18:11 → M ED INP 18:12 → ENRESERV 07-31 11:43 → M MSPAV 07-31 13:10
PROVIDERS: ADMIT Internal Medicine; ATTEND Internal Medicine
DX: H47.011 Ischemic optic neuropathy, right eye (principal); I63.9 Cerebral infarction, unspecified; F17.218 Nicotine dependence, cigarettes, with other nicotine-induced disorders; Z79.82 Long term (current) use of aspirin; Z79.899 Other long term (current) drug therapy
CPT/HCPCS: 36415; 70450; 70544; 70547; 70551; 71045; 80047; 80048; 80061; 80076; 82550; 82553; 83036; 83690; 83735; 83880; 84100; 84443; 85025; 85027; 85652; 86140; 87631; 93005; 93041; 93306; 94760; 96372; 96374; 96376; 99285; J1650; J2405

== ENCOUNTER → 2022-01-21 | Outpatient (CLI) | payer BC ==
[~2022-01-21] MED LIST changes: +ASPI-551 PO; +ATOR40TA75 PO; +PANT40TA29 PO; +PROAAER10 INH
== END ==
LOC: M RAD 10:26
PROVIDERS: ATTEND Physician Assistant
DX: Z87.891 Personal history of nicotine dependence (principal)

== ENCOUNTER → 2022-03-13 | Outpatient (CLI) | payer BC | LOC: M LABSMTC 09:16 | PROVIDERS: ATTEND Anesthesiology | DX: Z20.828 Contact with and (suspected) exposure to other viral communicable diseases (principal); Z11.59 Encounter for screening for other viral diseases ==

== ENCOUNTER 2022-03-18 07:46 | Day surgery (SDC) | payer BC ==
[~2022-03-18] VITALS: Ht 172.7 cm; Wt 73.4 kg
[~2022-03-18 07:46] MED LIST changes: +NS 1,000 ML IV ONE
[2022-03-18] MEDS ORDERED: propofoL 200 MG/20 ML VIAL As Ordered ONE (09:39)
[2022-03-18] MEDS ORDERED: LIDOCAINE 2% 100MG/5ML SDV (FOR ANES.) As Ordered ONE (09:39)
[2022-03-18 10:25] VITALS: BP 157/65
== END 2022-03-18 10:31 | disposition home or self-care (01) ==
LOC: M OPP 07:46
PROVIDERS: ATTEND Surgery
DX: Z12.11 Encounter for screening for malignant neoplasm of colon (principal); K63.5 Polyp of colon; K64.8 Other hemorrhoids; Z79.02 Long term (current) use of antithrombotics/antiplatelets; Z79.82 Long term (current) use of aspirin; F17.210 Nicotine dependence, cigarettes, uncomplicated

== ENCOUNTER → 2025-04-18 | Outpatient (REF) | payer BC ==
[~2025-04-18] MED LIST changes: -NS 1,000 ML IV ONE
[2025-04-18 18:16] LABS: APPEARANCE, URINE CLEAR (CLEAR); BACTERIA, URINE AUTO NEGATIVE (NEGATIVE); BILIRUBIN, URINE AUTO NEGATIVE (NEGATIVE); BLOOD, URINE BLOOD NEGATIVE (NEGATIVE); GLUCOSE, URINE (UA) AUTO NEGATIVE (NEGATIVE); KETONE, URINE AUTO NEGATIVE (NEGATIVE); LEUKOCYTE ESTERASE, URINE AUTO NEGATIVE (NEGATIVE); NITRITE, URINE AUTO NEGATIVE (NEGATIVE); PROTEIN, URINE AUTO NEGATIVE (NEGATIVE); RBC, URINE AUTO 1 /HPF (0-3); SPECIFIC GRAVITY URINE AUTO 1.009 (1.002-1.035); SQUAMOUS EPITHELIAL CELL UR AU 0 /HPF (0-6); UROBILINOGEN, URINE AUTO 0.2 mg/dL (0.0-2.0); WBC, URINE AUTO 0 /HPF (0-3)
[2025-04-18 18:21] LABS: PSA SCREENING 0.50 NG/ML (< 4.00)
[2025-04-18 18:23] LABS: C REACTIVE PROTEIN QUANTITATIV < 0.50 MG/DL (<1.0)
[2025-04-18 18:24] LABS: ALT/SGPT 13 U/L (7.0-40); AST/SGOT 16 U/L (<34); CALCIUM LEVEL 8.7 MG/DL (8.3-10.6); CARBON DIOXIDE LEVEL 29 MMOL/L (20-31); CHLORIDE LEVEL 104 MMOL/L (98-107); CHOLESTEROL LEVEL 185 MG/DL (<200); CHOLESTEROL RISK RATIO 5.42 (<5); CREATININE FOR GFR 0.89 MG/DL (0.70-1.30); GLOMERULAR FILTRATION RATE > 90.0 (>49); LDL CHOLESTEROL 124.1 MG/DL (<100); NON-HDL-C 150.9 MG/DL; POTASSIUM SERUM 4.1 MMOL/L (3.5-5.1); SODIUM LEVEL 144 MMOL/L (136-145); TRIGLYCERIDES LEVEL 134 MG/DL (<150)
[2025-04-18 18:25] LABS: RHEUMATOID FACTOR QUANT < 3.5 IU/ML (<14)
[2025-04-18 18:26] LABS: BASO # 0.1 10^3/uL (0.0-0.2); BASO % 0.8 % (0.0-1.0); EOS # 0.2 10^3/uL (0.0-0.5); EOS % 2.7 % (0.0-3.0); LYMPH # 1.8 10^3/uL (1.5-5.0); LYMPH % 25.3 % (24.0-44.0); MONO # 0.5 10^3/uL (0.0-0.8); MONO % 7.0 % (2.0-8.0); NEUTROPHILS # 4.7 10^3/uL (1.5-8.5); NEUTROPHILS % 63.9 % (36.0-66.0); PLATELET COUNT, AUTOMATED 285 10^3/uL (150-450)
[2025-04-18 18:35] LABS: ERYTHROCYTE SEDIMENTATION RATE 18 mm/hr (0-20)
[2025-04-25 19:45] LABS: LYME TOTAL ANTIBODY CIA <= 0.90 Index (<=0.90)
== END ==
LOC: M LAB REF 17:08
PROVIDERS: ATTEND Internal Medicine
DX: Z00.00 Encounter for general adult medical examination without abnormal findings (principal); M06.4 Inflammatory polyarthropathy; Z12.5 Encounter for screening for malignant neoplasm of prostate; E78.5 Hyperlipidemia, unspecified; M13.80 Other specified arthritis, unspecified site; Z82.49 Family history of ischemic heart disease and other diseases of the circulatory system

== ENCOUNTER → 2025-05-04 | Outpatient (CLI) | payer BC | LOC: M RAD 13:18 | PROVIDERS: ATTEND Internal Medicine | DX: N62 Hypertrophy of breast (principal); F17.210 Nicotine dependence, cigarettes, uncomplicated ==

== ENCOUNTER 2025-07-06 06:49 | Day surgery (SDC) | payer BC ==
[~2025-07-06] VITALS: Ht 172.7 cm; Wt 69.4 kg
[~2025-07-06 06:49] MED LIST changes: +ECOT81TA5 PO
[2025-07-06] MEDS ORDERED: LIDOCAINE 2% 100 MG/5 ML SDV (FOR ANES.) As Ordered ONE (07:47)
[2025-07-06 08:53] VITALS: TEMP 97.1
[2025-07-06 09:26] VITALS: BP 133/62; O2SAT 97
== END 2025-07-06 09:29 | disposition home or self-care (01) ==
LOC: M OPP 06:49
PROVIDERS: ATTEND Surgery
DX: D12.5 Benign neoplasm of sigmoid colon (principal); K57.30 Diverticulosis of large intestine without perforation or abscess without bleeding; Z86.0100 Personal history of colon polyps, unspecified; Z79.82 Long term (current) use of aspirin; Z79.899 Other long term (current) drug therapy; F17.210 Nicotine dependence, cigarettes, uncomplicated